=== PATIENT | male | born 1940 | race Caucasian/White ===

== ENCOUNTER 2016-05-29 11:24 | Observation (INO) | payer MEDICARE ==
[2016-05-22 15:26] LABS: WBC (NOT ORDERED) (RFLEX) 0 (0-5)
[2016-05-22 16:14] LABS: HEMATOCRIT 39.3 % (40.0-51.0); HEMOGLOBIN 14.2 g/dL (13.6-17.8)
[2016-05-22 16:26] LABS: ASCORBIC ACID (UR NOT ORDER) NEG (NEG); BILIRUBIN, URINE NEGATIVE (NEG); KETONE, URINE NEGATIVE (NEG); LEUKOCYTE ESTERASE(NOT OR NEG (NEG)
[2016-05-22 16:27] LABS: BUN (BLOOD UREA NITROGEN) 14 MG/DL (6-23); CALCIUM, SERUM 8.9 MG/DL (8.5-10.4); CHLORIDE, SERUM 104 MMOL/L (96-112); CO2 (CARBON DIOXIDE) 30 MMOL/L (24-34); CREATININE 1.25 MG/DL (0.70-1.30); GFR AFRICAN AMERICAN 66 ML/MIN (>=60); GFR NON AFRICAN AMERICAN 57 ML/MIN (>=60); POTASSIUM, SERUM 4.1 MMOL/L (3.5-5.3); SODIUM, SERUM 141 MMOL/L (135-148)
[2016-05-22 16:28] LABS: GLUCOSE, SERUM 207 MG/DL (60-99)
--- NOTE | ~2016-05-29 | OP ---
Record Of Operation [facility] [address] [place]. [address] NAME: JADE KAISER : 44 STATUS : ADM IN PAT#: [id number] AGE: 75 ADM/REG DATE : 05/29/16 MR#: [id number] REPORT SERV DATE: 05/29/16 DICTATED BY: DANNY ELLIS JR. DATE: 05/29/16 REPORT STATUS : Draft TRANSCRIBED BY: MODL DATE: 05/29/16 DATE OF PROCEDURE: 05/29/2016 SURGEON: Danny Ellis M.D. PREOPERATIVE DIAGNOSIS: Benign prostate hypertrophy. POSTOPERATIVE DIAGNOSIS: Benign prostate hypertrophy. PROCEDURE PERFORMED: Cystoscopy and transurethral resection of the prostate. COMPLICATIONS: None. CONSULTATIONS: None. ANESTHESIA: General with endotracheal tube. SPECIMENS: Prostate chips. DRAINS: [id number] 3 way Bermeo catheter. ESTIMATED BLOOD LOSS: 10 mL. INDICATION: Mr. Kaiser is a 75-year-old gentleman who has a history of benign prostate hypertrophy and bladder outlet obstruction. He comes today for transurethral resection of the prostate. PROCEDURE IN DETAIL: After the patient was identified and proper informed consent was obtained, he was taken to the operating room. General anesthesia was performed without complication using an endotracheal tube. He was then prepped and draped in a normal sterile fashion in the lithotomy position. Cystoscopic examination of the urethra reveals a 3.5 to 4 cm prostatic urethral length with trilobar hypertrophy, mainly of the lateral lobes. Bladder mucosa was examined and found to be mildly trabeculated. Both ureteral orifices were in the normal position, normal size. Clear urine coming from both orifices. I then removed the cystoscope and replaced it with a 26-Swedish resectoscope with continuous flow irrigation. I performed transurethral resection of prostate in a standard fashion from the bladder neck to the verumontanum in all 3 lobes down to surgical capsule. He did have several prostatic ducts filled with calcifications. These were removed as well, and once the surgical capsule had been exposed from a 10 o'clock position around and the 2 o'clock position. I then irrigated the chips from the bladder using an [employer] evacuator. I inspected for hemostasis and cauterized any remaining blood vessels including the mucosal lining at the bladder neck. I inspected both ureteral orifices where they were in good position and without injury. The bladder was drained with a 24-Swedish [address] way Bermeo catheter to light traction and continuous bladder irrigation with sterile saline. The patient was transferred to the postanesthesia care unit in stable condition. Record Of Operation [place] [address] [place] [place]. [id number] NAME: JADE KAISER : 44 STATUS : ADM IN [facility]#: [id number] AGE: 75 ADM/REG DATE : 05/29/16 MR#: [id number] REPORT SERV DATE: 05/29/16 DICTATED BY: DANNY ELLIS JR. DATE: 05/29/16 REPORT STATUS : Draft TRANSCRIBED BY: CHEPE DATE: 05/29/16 LILO/CHEPE Danny Ellis Jr., M.D. / [id number] CC: Danny Ellis Jr., M.D.
[~2016-05-29 11:24] MED LIST: ADOXA PAK1 MG/150 M PO; BACDS PO; FLOMAX4 PO; GLUCOPHAGE1000 MG PO; GLUCPH PO; IBU-200200 MG PO; PRIN5 PO; PROSCAR5 PO; ZANTAC150 MG PO
[2016-05-29 15:00] LABS: HEMATOCRIT 37.4 % (40.0-51.0); HEMOGLOBIN 13.5 g/dL (13.6-17.8)
[2016-05-30 07:04] LABS: HEMATOCRIT 38.2 % (40.0-51.0); HEMOGLOBIN 13.5 g/dL (13.6-17.8)
[2016-05-30] MEDS ORDERED: NORCO1 TA2 PO (13:19)
[2016-05-30] MEDS ORDERED: DSS PO (13:20)
[2016-12-06] MEDS ORDERED: JANUVIA100 MG PO (18:18)
[2016-12-06] MEDS ORDERED: ACTOPLUS M15 MG/500 PO (18:19)
== END 2016-05-30 14:22 | disposition home or self-care (01) ==
LOC: SDC/OF 11:24 → PACU 14:34 → 4SO 17:56
PROVIDERS: Urology
PROC: 0VT08ZZ Resection of Prostate, Via Natural or Artificial Opening Endoscopic (ICD-10-PCS; principal; 2016-05-29 12:45)
DX: N40.1 Benign prostatic hyperplasia with lower urinary tract symptoms (principal); N13.8 Other obstructive and reflux uropathy; N32.89 Other specified disorders of bladder; N20.0 Calculus of kidney; E11.9 Type 2 diabetes mellitus without complications; K57.92 Diverticulitis of intestine, part unspecified, without perforation or abscess without bleeding; K21.9 Gastro-esophageal reflux disease without esophagitis; H91.90 Unspecified hearing loss, unspecified ear; R25.1 Tremor, unspecified; Z79.84 Long term (current) use of oral hypoglycemic drugs; Z79.899 Other long term (current) drug therapy; Z90.89 Acquired absence of other organs; Z98.41 Cataract extraction status, right eye; Z98.42 Cataract extraction status, left eye; Z96.1 Presence of intraocular lens; Z98.890 Other specified postprocedural states; Z86.010 Personal history of colon polyps
CPT/HCPCS: 36415; 80048; 81001; 82962; 84295; 85014; 85018; 86850; 86900; 86901; 88305; 93005; 96372; A9270-GY; G0378; J2405; J3010

== ENCOUNTER 2016-12-08 07:46 | Day surgery (SDC) | payer MEDICARE ==
[2016-12-05 10:24] LABS: HEMATOCRIT 38.5 % (40.0-51.0); HEMOGLOBIN 13.3 g/dL (13.6-17.8)
[2016-12-05 10:36] LABS: BUN (BLOOD UREA NITROGEN) 20 MG/DL (6-23); CHLORIDE, SERUM 107 MMOL/L (96-112); CO2 (CARBON DIOXIDE) 27 MMOL/L (24-34); CREATININE 1.23 MG/DL (0.70-1.30); GFR AFRICAN AMERICAN 67 ML/MIN (>=60); GFR NON AFRICAN AMERICAN 57 ML/MIN (>=60); GLUCOSE, SERUM 140 MG/DL (60-99); POTASSIUM, SERUM 3.8 MMOL/L (3.5-5.3); SODIUM, SERUM 141 MMOL/L (135-148)
[2016-12-05 11:42] LABS: ASCORBIC ACID (UR NOT ORDER) NEG (NEG); BILIRUBIN, URINE NEGATIVE (NEG); KETONE, URINE NEGATIVE (NEG); LEUKOCYTE ESTERASE(NOT OR NEG (NEG); WBC (NOT ORDERED) (RFLEX) 4 (0-5)
[~2016-12-08] VITALS: Ht 185.4 cm; Wt 89.8 kg
--- NOTE | ~2016-12-08 | OP ---
Record Of Operation [facility] [address] [place]. [address] NAME: JADE KAISER : 44 STATUS : [facility]#: [id number] AGE: 76 ADM/REG DATE : 12/08/16 MR#: [id number] REPORT SERV DATE: 12/08/16 DICTATED BY: DANNY ELLIS JR. 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 PROCEDURES PERFORMED: Cystoscopy, transurethral resection of prostatic urethral calcifications. COMPLICATIONS: None. CONSULTATIONS: None. ANESTHESIA: General with a laryngeal mask airway. 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 DRAINS: 18-St Helenian Bermeo catheter. ESTIMATED BLOOD LOSS: None. INDICATIONS: Mr. Kaiser is a 76-year-old gentleman, who underwent transurethral resection of the prostate several weeks ago. He has continued to have considerable amount of urgency, frequency, and dysuria. He has failed several different anticholinergic medications. Cystoscopic examination in the office reveals prostatic urethral calcifications that are forming along the posterior bladder neck at approximately the 5 o'clock to 7 o'clock positions. He comes today for resection of those calcifications. PROCEDURE IN DETAIL: After the patient was identified and proper informed consent was obtained, he was taken to the operating room. General anesthesia was performed without complication using a laryngeal mask airway. He was then prepped and draped in the normal sterile fashion in the lithotomy position. Cystoscopic examination of the urethra again revealed a prostatic urethral calcifications, both ureteral orifices were in normal position and normal size. The prostatic urethral calcifications were then resected using a 26-St Helenian resectoscope and the area was cauterized. Once I was satisfied that all the stones and the prostatic urethral pieces had been removed from the bladder, I placed an 18-St Helenian Bermeo catheter. The bladder was drained. The patient was awakened in the operating room, and transferred to the Postanesthesia Care Unit in stable condition. [place] Record Of [place] [id number]. [place]. [address] NAME: JADE KAISER : 44 STATUS : [facility]#: [id number] AGE: 76 ADM/REG DATE : 12/08/16 MR#: [id number] REPORT SERV DATE: 12/08/16 DICTATED BY: DANNY ELLIS JR. DATE: 12/08/16 REPORT STATUS : Draft TRANSCRIBED BY: CHEPE DATE: 12/08/16 Danny Ellis Jr., M.D. / [id number] CC: Kris Crews Jr., M.D.
[~2016-12-08 07:46] MED LIST changes: +ACTOPLUS M15 MG/500 PO; +DSS PO; +JANUVIA100 MG PO; +NORCO1 TA2 PO
== END 2016-12-08 12:50 | disposition home or self-care (01) ==
LOC: SDC 07:46
PROVIDERS: Urology
PROC: 0TCB8ZZ Extirpation of Matter from Bladder, Via Natural or Artificial Opening Endoscopic (ICD-10-PCS; principal; 2016-12-08 10:00)
DX: N30.21 Other chronic cystitis with hematuria (principal); N42.0 Calculus of prostate; E11.9 Type 2 diabetes mellitus without complications; R39.15 Urgency of urination; Z98.890 Other specified postprocedural states; Z79.899 Other long term (current) drug therapy
CPT/HCPCS: 80048; 81001; 82962; 85014; 85018; 88305; 93005; A9270-GY; J2405; J3010